=== PATIENT | female | born 1995 | race Caucasian/White ===

== ENCOUNTER 2017-01-10 20:24 | Inpatient (IN) | payer BC ==
[~2017-01-10] VITALS: Ht 167.6 cm; Wt 82.3 kg
[~2017-01-10 20:24] MED LIST: METO-157 PO
[2017-01-10 21:16] VITALS: Ht 167.6 cm; Wt 82.3 kg
[2017-01-10] MEDS ORDERED: NURSING VERBAL MED ORDER ONE (21:30)
[2017-01-10] MEDS ORDERED: ACETAMINOPHEN 325 MG TAB PO PRN (21:45)
[2017-01-10] MEDS ORDERED: PRENTAB26 PO (21:47)
[2017-01-10] MEDS ORDERED: MoRPHine SULFATE 10 MG/ML CARP/VIAL SC ONE (23:15)
[2017-01-11] MEDS ORDERED: LACTATED RINGER'S 1000ML 1,000 ML IV SCH ×2 (00:37→10:16)
[2017-01-11] MEDS ORDERED: LACTATED RINGER'S 1000ML 1,000 ML IV PRN (00:37)
[2017-01-11 00:54] LABS: URINE APPEARANCE CLEAR (CLEAR); URINE BILIRUBIN NEG (NEG); URINE COLOR DK YELLOW; URINE EPITHELIAL CELL AUTO >30 /lpf (0-5); URINE NITRITE NEG (NEG); URINE SPECIFIC GRAVITY 1.025 (1.000-1.030); UROBILINOGEN NEG (NEG)
[2017-01-11 00:57] LABS: HEMATOCRIT 31.5 % (37-47); MEAN CELL VOLUME 86.3 fL (80-100); MEAN CORPUSCULAR HEMOGLOBIN 30.4 pg (25-34); MEAN CORPUSCULAR HGB CONC 35.2 g/dl (32-36); MEAN PLATELET VOLUME 11.5 fL (7.4-10.4); PLATELET COUNT 187 K/uL (130-400); RED BLOOD COUNT 3.65 M/uL (4.2-5.4); WHITE BLOOD COUNT 12.84 K/uL (4.8-10.8)
[2017-01-11 00:58] LABS: MANUAL MICROSCOPIC REQUIRED? NO; REVIEW REQ? YES
[2017-01-11] MEDS ORDERED: PENICILLIN G POTASSIUM IV 6 MU in DEXTROSE 5% 250ML 250 ML IV ONE (01:15)
[2017-01-11] MEDS ORDERED: FENTANYL 2MCG/ML ROPIV 1.25MG/ML 100ML BAG EPI ONE (01:34)
[2017-01-11] MEDS ORDERED: BUPIVACAINE 0.25% 30 ML VIAL ONE (01:34)
[2017-01-11] MEDS ORDERED: EpHEDrine SULFATE INJ 50 MG/ML AMP ONE (01:34)
[2017-01-11] MEDS ORDERED: FENTANYL CITRATE INJ 50 MCG/1 ML 2 ML VIAL ONE (01:35)
[2017-01-11] MEDS: LACTATED RINGER'S 1000ML 1,000 ML IV SCH ×2 (01:39→08:56)
[2017-01-11] MEDS ORDERED: LACTATED RINGER'S 1000ML 500 ML IV PRN (02:39)
[2017-01-11] MEDS ORDERED: NALOXONE HCL INJ 1 MG in SODIUM CHLORIDE 0.9% 1000ML 1,000 ML IV PRN (02:39)
[2017-01-11] MEDS ORDERED: ONDANSETRON INJ 2 MG/ML 2 ML VIAL IV PRN (02:45)
[2017-01-11] MEDS ORDERED: NALBUPHINE HCL INJ 10 MG/ML AMP IV PRN (02:45)
[2017-01-11] MEDS ORDERED: DiphenhydrAMINE HCL 50 MG/ML VIAL IV PRN (02:45)
[2017-01-11] MEDS ORDERED: NALOXONE HCL INJ 0.4 MG/1 ML VIAL/CARP IV PRN (02:45)
[2017-01-11] MEDS ORDERED: EpHEDrine SULFATE INJ 50 MG/ML AMP IV PRN (02:45)
[2017-01-11] MEDS ORDERED: PROMETHAZINE HCL INJ 25 MG in SODIUM CHLORIDE 0.9% 50ML 50 ML IV PRN (02:45)
[2017-01-11] MEDS ORDERED: METOCLOPRAMIDE HCL INJ 20 MG in SODIUM CHLORIDE 0.9% 50ML 50 ML IV PRN (02:45)
[2017-01-11] MEDS: PENICILLIN G POTASSIUM IV 3 MU in DEXTROSE 5% 100ML 100 ML IV PRN ×2 (05:27→08:58)
[2017-01-11] MEDS: FENTANYL 2MCG/ML ROPIV 1.25MG/ML 100ML BAG EPI PRN ×2 (06:55→08:07)
[2017-01-11] MEDS ORDERED: OXYTOCIN 30 UNITS/500ML NSS IV ONE (07:19)
[2017-01-11] MEDS ORDERED: BENZOCAINE 20% AER SPR 82.5 GM CAN EXT PRN (10:30)
[2017-01-11] MEDS ORDERED: OXYCODONE/ACETAMINOPHEN 5-325 TAB PO PRN (10:30)
[2017-01-11] MEDS ORDERED: HYDROCORTISONE ACETATE 25 MG SUPP PR PRN (10:30)
[2017-01-11] MEDS ORDERED: OXYTOCIN 30 UNITS/500ML NSS IV PRN (10:30)
[2017-01-11] MEDS ORDERED: MEASLES, MUMPS & RUBELLA VIRUS VIAL SQ. ONE (10:30)
[2017-01-11] MEDS ORDERED: ACETAMINOPHEN 325 MG TAB PO PRN (10:30)
[2017-01-11] MEDS ORDERED: DIPHTHERIA/TETANUS/PERTUSSIS 0.5 ML SYR/VIAL IM. ONE (10:30)
[2017-01-11] MEDS ORDERED: SUPERCREAM 0.870 % 15GM JAR EXT PRN (10:30)
[2017-01-11] MEDS ORDERED: LANOLIN OINT EXT PRN ×2 (10:30)
--- NOTE | 2017-01-11 10:32 | Anesthesia Procedure Note ---
Anesthesia Epidural Removal Nt Date & Time Jan 11, 2017 at 10:32 Vital Signs Pain Intensity: 0.0 Notes Mental Status: alert / awake / arousable, participated in evaluation Nausea / Vomiting: adequately controlled Pain: adequately controlled Airway Patency, RR, SpO2: stable & adequate BP & HR: stable & adequate Hydration State: stable & adequate Neuraxial Anesthesia: was administered, sensory block is resolving Anesthetic Complications: no major complications apparent, pt satisfied with anesthetic care Epidural: removed without complications, with tip intact
--- NOTE | 2017-01-11 10:34 | DELIVERY SUMMARY ---
DATE OF OPERATION: 01/11/2017 DETAILS OF DELIVERY DATE OF DELIVERY: 01/11/2017. TIME OF DELIVERY OF BABY: 0956 a.m. TIME OF DELIVERY OF PLACENTA: 1010 a.m. DETAILS OF DELIVERY: The patient was found to be fully dilated and desired to push. She pushed for about 2 hours and there was a tight hymenal ring/ band around the head holding the baby's head from delivery. After verbal consent was obtained, 1% lidocaine was injected. A right mediolateral episiotomy was opened and the baby's head was delivered without difficulty. Shoulders were delivered with minimal traction. Baby was handed off to the mother where mouth and nose were suctioned. Cord was clamped x2 and cut. It was a 3-vessel cord. Cord blood was obtained. Perineum and vagina were checked for lacerations and there was only a right mediolateral episiotomy which was opened earlier. Rectal exam was done and confirmed to be second degree. Gloves were changed. The episiotomy was repaired with 2-0 Vicryl in a running locked fashion bringing the vaginal mucosa muscles together and the perineal body muscles together and then the skin in a subcuticular fashion. Excellent hemostasis was achieved. The placenta was found to be in the vagina, delivered spontaneously intact and complete. Uterus was explored and found to be empty. Fundus was firm and lower segment was cleared of all clots and debris. EBL was 200. No complications happened. Baby and mom tolerated the procedure well. Baby was a viable male infant, Apgars 8/9, weight is 3680 gr. At the end of the procedure sponge, needle and instrument counts were correct x2 and I was present during whole procedure. I attest to the content of the Intraoperative Record and any orders documented therein. Any exceptions are noted below. MTDD
[2017-01-11 14:00] VITALS: BP 110/72; PULSE 94; TEMP 36.8
[2017-01-11] MEDS: IBUPROFEN 600 MG TAB PO PRN (14:17)
[2017-01-11 15:50] VITALS: BP 133/68; PULSE 89; TEMP 36.9
[2017-01-11 19:55] VITALS: BP 121/75; PULSE 76; TEMP 36.4
[2017-01-11] MEDS: DOCUSATE SODIUM 100 MG CAP PO SCH (19:58)
[2017-01-12 00:30] VITALS: BP 115/71; PULSE 93; TEMP 36.4
[2017-01-12] MEDS: IBUPROFEN 600 MG TAB PO PRN ×2 (01:34→12:56)
[2017-01-12 04:00] VITALS: BP 120/70; PULSE 88; TEMP 36.7
[2017-01-12 06:33] LABS: HEMATOCRIT 23.5 % (37-47)
[2017-01-12] MEDS: DOCUSATE SODIUM 100 MG CAP PO SCH ×2 (08:27→19:57)
[2017-01-12] MEDS: FERROUS SULFATE 325 MG TAB PO SCH (08:27)
[2017-01-12] MEDS: PRENATAL VITAMIN TAB PO SCH (08:28)
[2017-01-12 08:30] VITALS: BP 132/88; PULSE 95; TEMP 36.6; O2SAT 98
--- NOTE | 2017-01-12 11:44 | OB/GYN Progress Note ---
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 Subjective conversation w/ patient, physical exam Ambulation: ambulating normally Voiding: no voiding problems Passing Gas: Yes Diet Tolerance: Regular Diet Lochia: Moderate Feeding Type: Bottle Feeding Pain: 3/10 Notes: Doing well, no concerns. Pain well controlled. Lochia moderate. Tolerating regular diet. Ambulating without difficulty. Objective Vital Signs Date Time Temp Pulse Resp B/P Pulse Ox O2 Delivery O2 Flow Rate FiO2 01/12/17 08:30 36.6 95 16 132/88 98 Room Air 01/12/17 08:30 Room Air 01/12/17 04:00 36.7 88 18 120/70 Room Air 01/12/17 00:30 36.4 93 18 115/71 Room Air 01/12/17 00:30 Room Air 01/11/17 19:55 36.4 76 18 121/75 Room Air 01/11/17 15:50 Room Air 01/11/17 15:50 36.9 89 18 133/68 Room Air 01/11/17 14:00 36.8 94 18 110/72 Room Air 01/11/17 14:00 Room Air Physical Exam General Appearance: WELL-APPEARING Respiratory/Chest: chest non-tender, lungs clear Cardiovascular: regular rate, rhythm Abdomen: normal bowel sounds, soft Fundus: Firm Extremities: normal range of motion, non-tender Laboratory Results Last 24 Hours Test 01/12/17 05:52 Hemoglobin 8.1 g/dL Hematocrit 23.5 % Assessment and Plan Post- Day Number: 1 Continue Routine Care: -Continue routine care -Anticipate d/c home in AM.
[2017-01-12 15:55] VITALS: BP 122/75; PULSE 79; TEMP 36.5; O2SAT 100
[2017-01-12] MEDS ORDERED: BISACODYL 5 MG TABEC PO SCH (20:00)
[2017-01-12 23:10] VITALS: BP 113/72; PULSE 86; TEMP 36.8
[2017-01-13] MEDS ORDERED: BISACODYL 10 MG SUPP PR PRN (07:00)
[2017-01-13] MEDS: DOCUSATE SODIUM 100 MG CAP PO SCH (07:52)
[2017-01-13] MEDS: FERROUS SULFATE 325 MG TAB PO SCH (07:52)
[2017-01-13] MEDS: PRENATAL VITAMIN TAB PO SCH (07:52)
[2017-01-13 07:55] VITALS: BP 118/79; PULSE 85; TEMP 36.8
[2017-01-13 08:22] LABS: HEMATOCRIT 27.9 % (37-47); MEAN CELL VOLUME 88.9 fL (80-100); MEAN CORPUSCULAR HEMOGLOBIN 30.9 pg (25-34); MEAN CORPUSCULAR HGB CONC 34.8 g/dl (32-36); PLATELET COUNT 213 K/uL (130-400); RED BLOOD COUNT 3.14 M/uL (4.2-5.4); WHITE BLOOD COUNT 9.53 K/uL (4.8-10.8)
--- NOTE | 2017-01-13 08:49 | OB/GYN Progress Note ---
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 Subjective conversation w/ patient, physical exam Ambulation: ambulating normally Voiding: no voiding problems Passing Gas: Yes Diet Tolerance: Regular Diet Lochia: Moderate Feeding Type: Breast Feeding Review of Systems Constitutional: No chills, No fatigue, No fever, No problem reported, No sweats , No weakness, No weight loss Respiratory: No cough, No dyspnea at rest, No dyspnea on exertion, No hemoptysis, No problem reported, No shortness of breath, No sputum, No wheezing Cardiac: No PND, No chest pain, No claudication, No edema, No orthopnea, No palpitations, No problem reported Breast: No breast lump, No breast pain, No change in shape, No nipple discharge , No problem reported, No see HPI Abdomen: No GI bleeding, No constipation, No diarrhea, No nausea, No pain, No problem reported, No vomiting Female : No abnormal vaginal bleeding, No dysuria, No hematuria, No incontinence, No problem reported, No see HPI, No urinary frequency, No vaginal discharge VD day #2 pt doing well disch home with insrructions Objective Vital Signs Date Time Temp Pulse Resp B/P Pulse Ox O2 Delivery O2 Flow Rate FiO2 01/13/17 07:55 Room Air 01/13/17 07:55 36.8 85 18 118/79 Room Air 01/12/17 23:10 36.8 86 20 113/72 Room Air 01/12/17 23:10 Room Air 01/12/17 15:55 36.5 79 16 122/75 100 Room Air Laboratory Results Last 24 Hours Test 01/13/17 07:17 White Blood Count 9.53 K/uL Red Blood Count 3.14 M/uL Hemoglobin 9.7 g/dL Hematocrit 27.9 % Mean Corpuscular Volume 88.9 fL Mean Corpuscular Hemoglobin 30.9 pg Mean Corpuscular Hemoglobin Concent 34.8 g/dl Platelet Count 213 K/uL Assessment and Plan Post- Day Number: 1
[2017-01-13] MEDS ORDERED: MTR600X PO (08:50)
--- NOTE | 2017-01-13 08:51 | Discharge Instructions ---
Discharge Instructions Admission Reason for Admission: Spontaneous Rupture Of Amniotic Membranes, Uterine Discharge Discharge Diagnosis / Problem: Discharge Goals Goal(s): Routine recovery after delivery Activity Recommendations Activity Limitations: as noted below ACTIVITY RECOMMENDATIONS: * Gradual return to full activity over the next 2-3 weeks. * No lifting - nothing heavier than baby over the next 2-3 weeks. * Do not engage in vigorous exercise, sexual activity or sports until cleared by your physician. * Do not drive or operate any motorized equipment until cleared by your physician. * You may shower/bathe daily. BREAST CARE: If you are not breast feeding: * Wear a supportive bra 24 hours a day for one to two weeks. * Avoid stimulating your breasts and nipples as much as possible during the first few weeks after delivery. * When taking a shower, have the warm water hit your back, not breasts. * When your breasts feel full, apply ice packs. Usually three to four times a day helps ease the discomfort. * Take a mild pain medication (Tylenol/Motrin) when you are uncomfortable. If breast feeding: * Use breast milk to lubricate nipples. Lansinoh cream may be used for sore nipples. You do not need to remove cream prior to breast feeding. If using a different brand of cream, check the label for directions regarding removal of cream prior to nursing. * Wear a supportive bra. * If having problems with breasts or breast feeding, call a surgical consultant or your health care provider. EPISIOTOMY CARE: After delivery, if you have an episiotomy (stitches), the following steps will ease discomfort and aid healing. * For the first 24 hours after delivery, place ice packs next to your episiotomy to help reduce swelling. * After the first 24 hour-period, sitz baths, either portable or in the tub, are suggested. A shower with a shower arm sprayed over the episiotomy may be comforting. * Felicita care should be done after each voiding and bowel movement. Squirt warm water from a plastic bottle over the perineum (region of the body between the anus and urinary opening) and pat dry. * Use Dermoplast to ease discomfort. Shake container. Empire directly over the episiotomy. * Place a Tucks on a clean sanitary pad next to your episiotomy. OVER THE COUNTER MEDICATION: * For discomfort or pain, you may use Acetaminophen (Tylenol), Ibuprofen (Advil ), or Naproxen (Aleve) following the package directions. * For constipation you may use Colace following the package directions. SPECIAL CARE INSTRUCTIONS: When you are discharged from the hospital, it is important for you to follow the instructions listed below: * During the first week at home, you should be able to care for yourself and your baby. In addition, the usual light household activities are encouraged. * Limit your activities to the way you feel. Do not try to clean the house or move furniture. Be sensible. * If you actively engage in sports and have done so up until the time of your delivery, you may resume these activities as soon as you feel able. This may take up to one month or even longer. Use good judgment. * Continue to take your vitamins for at least six weeks after the of your baby. * Your diet need not be limited unless you were on a special diet before your delivery. Breast-feeding mothers need around 2500 calories per day and at least 64-80 ounces of fluid per day (8 to 10 glasses). * You should eat foods from the four major food groups. Crash diets or fad diets are to be avoided. Eating lean meats, fresh fruits and vegetables, low-fat dairy products, high fiber foods and a regular exercise program, will help you get back to your pre- weight without putting your health at risk. * Constipation is sometimes a problem after delivery. Take a mild laxative as needed. If breast feeding, Milk of Magnesia is acceptable to use. You may use a suppository or Fleets enema if no episiotomy. * A daily shower or tub bath is suggested. Be sure to thoroughly and gently dry the perineum. * A bloody vaginal discharge will usually continue until around four weeks post . A small amount of bleeding may continue for as long as six weeks. Vaginal discharge changes from the bright red bleeding after delivery to pink then brownish and finally yellowish-pink before becoming white and disappearing. * Bleeding may increase with activity. Your first period may come in 4-8 weeks. If you are breast feeding, your period may be delayed even longer. * [place] (sex) can begin whenever both you and your partner feel comfortable and do not have any form of genital infection. It is recommended that you wait until after your return appointment and discuss with your physician. If you have questions, please talk to your health care practitioner. A condom should be used to prevent infection and . * Foreplay, gentle intercourse and lubrication is very important the first several times to prevent pain. A water-based lubricant such as K-Y jelly or Astroglide may be used. * Tampons may be used six weeks after delivery. * Douching should be avoided for 6 weeks after delivery. * If you have RH negative blood and your baby is RH positive, you will receive RHOGAM by injection prior to discharge. The nurse will give you a card to keep with you that has the date and place that you received RHOGAM after delivery. * During your care, you had a Rubella screen done to check for the presence of rubella antibodies in your blood. If your test was negative, you will receive a Rubella vaccine prior to discharge. This vaccine may cause a fever, soreness at the injection site and flu-like symptoms. If these symptoms persist, notify your health care practitioner. is not advised for three months after a Rubella vaccine. There is a higher chance of having a baby with defects if conceived within three months of getting the vaccine. * If you were discharged 24 hours from delivery or before 48 hours: Visiting nurses will come to your home 48 hours after discharge to assess you and your baby. The visiting nurse will meet with you while you are in the hospital to arrange a time and get directions to your home. * Verbalizes understanding of car seat law as reviewed with patient nursing. * Car Seat hand-out given and reviewed with patient by nursing. * Shaken baby information reviewed with patient by nursing. Call you doctor if: * Heavy bleeding (saturating several pads an hour) or passing clots the size of your fist. * A fever >101 degrees F (38.3 degrees C) on two occasions four hours apart and/or chills. * Unusual pain in the pelvic or vaginal areas. * "Baby Blues" lasting longer than two weeks. If you have any questions or concerns, call your health care practitioner at . FOLLOW-UP VISIT: * Please call the office at to schedule a 6 week examination. It is important you keep this appointment. * It is important for you to make arrangements for either yearly or twice yearly check-ups thereafter. . Current Hospital Diet Patient's current hospital diet: Regular OB Diet Discharge Diet Recommended Diet: Regular Diet Pending Studies Studies pending at discharge: no Medical Emergencies . Who to Call and When: Medical Emergencies: If at any time you feel your situation is an emergency, please call 911 immediately. . Non-Emergent Contact Non-Emergency issues call your: Specialist . . "Provider Documentation" section prepared by Roldan Cronin. VTE Core Measure Inpt VTE Proph given/why not?: Treatment not indicated
[2017-01-13 12:50] VITALS: BP_DIAS 79; PULSE 85; TEMP 36.8
== END 2017-01-13 12:50 | disposition home or self-care (01) | DRG 775 ==
LOC: C.OPB 20:24 → C.LD 20:25 → C.OPB 01-11 00:38 → C.OBG 01-11 14:00
PROVIDERS: ADMIT Obstetrics & Gynecology; ATTEND Obstetrics & Gynecology
PROC: 0W8NXZZ Division of Female Perineum, External Approach (ICD-10-PCS; principal; 2017-01-11)
PROC: 10E0XZZ Delivery of Products of Conception, External Approach (ICD-10-PCS; principal; 2017-01-11)
DX: O48.0 Post-term pregnancy (principal); O99.824 Streptococcus B carrier state complicating childbirth; Z37.0 Single live birth; Z3A.40 40 weeks gestation of pregnancy

== ENCOUNTER 2021-04-14 08:05 | Inpatient (IN) ==
[2021-04-14] MEDS ORDERED: OXYTOCIN 30 UNITS/500 ML BAG IV PRN ×3 (09:04→12:42)
[2021-04-14] MEDS ORDERED: PENICILLIN G POTASSIUM 6 MU in DEXTROSE 5% 250 ML IV STA (09:04)
[2021-04-14] MEDS ORDERED: PENICILLIN G POTASSIUM 3 MU in DEXTROSE 5% 100 ML IV PRN (09:04)
[2021-04-14] MEDS: LACTATED RINGER'S 1,000 ML IV PRN ×3 (09:30→10:32)
[2021-04-14 09:43] LABS: Hematocrit (blood only) 32.9 % (37-47); Mean Corpuscular Hemoglobin 29.6 pg (25-34); Mean Corpuscular Hgb Conc 33.4 g/dL (32-36); Mean Corpuscular Volume 88.7 fL (80-100); Mean Platelet Volume 11.1 fL (7.4-10.4); Platelet Count 221 K/uL (130-400); RDW Coefficient of Variation 14.3 % (11.5-14.5); RDW Standard Deviation 46.4 fL (36.4-46.3); Red Blood Count 3.71 M/uL (4.2-5.4); White Blood Count 10.21 K/uL (4.8-10.8)
[2021-04-14] MEDS ORDERED: SODIUM CHLORIDE 0.9% INJ 10 ML VIAL ONE (09:50)
[2021-04-14] MEDS ORDERED: ePHEDrine sulfate 50 MG/ML AMP ONE (09:50)
[2021-04-14] MEDS ORDERED: fentaNYL 2MCG/ML ROPIVACAINE 1.25MG/ML 100 ML BAG EPI ONE (09:51)
[2021-04-14] MEDS ORDERED: BUPIVACAINE 0.25% 30 ML VIAL ONE (09:51)
[2021-04-14] MEDS ORDERED: fentaNYL citrate 100 MCG/2 ML VIAL ONE (09:51)
[2021-04-14] MEDS ORDERED: NALOXONE HCL 1 MG in SODIUM CHLORIDE 0.9% 1000ML 1,000 ML IV PRN (10:14)
[2021-04-14] MEDS ORDERED: ePHEDrine sulfate 50 MG/ML AMP IV PRN (10:14)
[2021-04-14] MEDS ORDERED: fentaNYL 2MCG/ML ROPIVACAINE 1.25MG/ML 100 ML BAG EPI PRN (10:14)
[2021-04-14] MEDS ORDERED: diphenhydrAMINE 50 MG/ML VIAL IV PRN (10:14)
[2021-04-14] MEDS ORDERED: NALOXONE HCL 0.4 MG/1 ML VIAL/CARP IV PRN (10:14)
[2021-04-14] MEDS ORDERED: ONDANSETRON INJ 2 MG/ML 2 ML VIAL IV PRN (10:14)
--- NOTE | 2021-04-14 10:22 | Anesthesiology Consultation ---
Date of Service April 14, 2021 Assessment & Plan Chart Review Chart Review: Patient NOT seen in Pre Admission Testing and Acceptable Risk for Labor Epidural Consults Requested none ASA ASA2 Proposed Anesthesia Anesthesia Type: Labor Epidural and CSE Risk / Benefits Reviewed With: PT / POA / Parent / Guardian, Accepts Plan and Informed Consent Obtained History Height/Weight Height: 5 ft 6 in Weight: 86.183 kg Allergies Allergy/AdvReac Type Severity Reaction Status Date / Time No Known Allergies Allergy Verified 04/14/21 08:22 Medications Home Medications Medication Instructions Recorded Confirmed Last Taken Multivit/Min/Iron/Fol Ac/Pren 1 tab PO DAILY #0 tab 01/10/17 04/14/21 04/11/21 ( Vitamin) Active Medications Generic Name Dose Route Start Last Admin Trade Name Freq PRN Reason Stop Dose Admin Lactated Ringer's 1,000 mls @ 125 mls/hr 04/14/21 09:04 04/14/21 09:46 Lr IV 04/16/21 09:03 999 mls/hr .Q8H PRN Administration L&D Protocol Protocol NPO Date Last Intake of Fluids: 04/14/21 Time Last Intake of Fluids: 09:30 Date Last Intake of Solids: 04/14/21 Time Last Intake of Solids: 03:00 Past Medical History Medical History (Updated 04/14/21 @ 10:22 by Travis Butler MD) Flow murmur Does not see a physician any longer - Has been cleared. Idiopathic scoliosis (normal spontaneous vaginal delivery) 01/11/2017 Boy - Rafael SARS-CoV-2 positive 02/25/21 had loss of taste/smell but now resolved Vitamin D deficiency Exercise / Class Metabolic Activity II 4-5 Yardwork/Stairs/Walk up hill Past Family History Family History Grandfather (Maternal) Diabetes Grandmother (Maternal) Diabetes Past Surgical History Surgical History No history of previous surgery Past Anesthesia History No Hx of Anesthesia Complications and No Family Hx of Anesthesia Complications History of PONV No Hx of PONV and No Hx of Motion Sickness Social History Smoking Status: Never smoker Hx Alcohol Use: No Hx Substance Use: No Review of Systems no chest pain or sob Physical Exam Vital Signs Last Vital Signs Temp 36.6 C 04/14/21 08:25 Pulse 97 H 04/14/21 10:19 Resp 18 04/14/21 08:25 BP 119/76 04/14/21 08:17 Pulse Ox 100 04/14/21 10:19 ENMT Mouth: no TMJ abnormality Thyromental Distance: > or= 3.5 Finger Breadths Mallampati Class: II Neck normal visual inspection Respiratory normal respiratory effort Auscultation: lungs clear to auscultation bilaterally Cardiovascular Rate/Rhythm: regular rate and regular rhythm Musculoskeletal Spine: normal cervical ROM Neurologic moves all extremities Psychiatric Orientation: alert and oriented x 3 Testing Laboratory Results 04/14/21 09:25
--- NOTE | 2021-04-14 10:56 | Labor Progress Brief Note ---
Date of Service April 14, 2021 Subjective +Admit Note 25 F P1001 at 39.2 weeks admitted in labor with SROM this AM clear fluid. GBS is positive. FHT Cat 1. Covid positive in the in January. Will admit and start Oxytocin to augment contractions. Assessment & Plan Admission and Anticipated Discharge Date Admission Date: April 14, 2021 Physical Exam Constitutional: WD/WN, vitals as above well developed and comfortable Genitourinary: OB Exam Abdomen: + heart tones, + vertex, + estimated weight (8 lbs.) and + irregular contractions Manual OB Exam: + cervical dilation 5 cm, + cervical effacement 90%, + station -2 and + amniotic fluid clear OB Exam Monitor Tracing: + external FHT monitor used, + external uterine monitor used, + category I and + normal FHT variability anticipate normal delivery Results & Data ([facility]) Vital Signs (Past 12 Hours) Vital Signs Temp Pulse Resp BP Pulse Ox 04/14/21 10:50 93 H 103/56 L 04/14/21 10:49 92 H 98 04/14/21 10:48 81 107/51 L 04/14/21 10:46 80 98/55 L 04/14/21 10:44 74 98 04/14/21 10:43 78 111/56 L 04/14/21 10:42 83 110/59 L 04/14/21 10:39 76 119/58 L 98 04/14/21 10:37 76 126/66 04/14/21 10:34 105 H 96 04/14/21 10:29 105 H 98 04/14/21 10:24 94 H 98 04/14/21 10:19 97 H 100 04/14/21 08:25 36.6 C 18 04/14/21 08:17 96 H 119/76
--- NOTE | 2021-04-14 12:27 | Delivery Summary ---
Vaginal Delivery Summary Date of Service April 14, 2021 Supervising Physician Co-Signing Physician Notes Delivery Note live female JULIANA over intact perineum with delayed cord clamping and Apgars 7/9 weight pending. Cord blood obtained followed by spontaneous delivery of intact placenta. No tears. EBL 150 ml. Final sponge and instrument count are correct. Mom and baby stable.
[2021-04-14] MEDS ORDERED: ACETAMINOPHEN 325 MG TAB PO PRN (12:42)
[2021-04-14] MEDS ORDERED: BENZOCAINE 20% AER SPR 82.5 GM CAN EXT PRN (12:42)
[2021-04-14] MEDS ORDERED: DIPHTHERIA/TETANUS/PERTUSSIS 0.5 ML SYR/VIAL IM ONE (12:42)
[2021-04-14] MEDS ORDERED: SUPERCREAM 0.870% 15 GM JAR EXT PRN (12:42)
[2021-04-14] MEDS ORDERED: HYDROCORTISONE ACETATE 25 MG SUPP PR PRN (12:42)
[2021-04-14] MEDS ORDERED: bisacodyL 10 MG SUPP PR PRN (12:42)
--- NOTE | 2021-04-14 13:35 | Anesthesia Procedure Note ---
Date of Service April 14, 2021 Anesthesia Post Epidural Note Vital Signs Vital Signs: Temp Pulse Resp BP Pulse Ox 36.5 C 86 18 123/63 97 04/14/21 11:04 04/14/21 13:29 04/14/21 12:29 04/14/21 13:29 04/14/21 12:15 Pain Intensity Bilateral Abdomen: Pain Intensity: 0 Notes Mental Status: alert / awake / arousable and participated in evaluation Nausea / Vomiting: adequately controlled Pain: adequately controlled Airway Patency, RR, SpO2: stable & adequate BP & HR: stable & adequate Hydration State: stable & adequate Neuraxial Anesthesia: was administered and sensory block is resolving Anesthetic Complications: no major complications apparent and Pt Satisfied with anesthetic care Epidural: Removed without complications and With tip intact
[2021-04-14] MEDS: IBUPROFEN 600 MG TAB PO PRN ×2 (15:36→21:25)
[2021-04-14] MEDS: DOCUSATE SODIUM 100 MG CAP PO SCH (20:38)
[2021-04-15 06:41] LABS: Hemoglobin 10.2 g/dL (12.0-16.0); Mean Corpuscular Hemoglobin 29.7 pg (25-34); Mean Corpuscular Volume 87.2 fL (80-100); Mean Platelet Volume 10.8 fL (7.4-10.4); Platelet Count 184 K/uL (130-400); RDW Coefficient of Variation 14.3 % (11.5-14.5); RDW Standard Deviation 45.2 fL (36.4-46.3); Red Blood Count 3.44 M/uL (4.2-5.4); White Blood Count 10.45 K/uL (4.8-10.8)
[2021-04-15] MEDS: DOCUSATE SODIUM 100 MG CAP PO SCH ×2 (08:10→20:38)
[2021-04-15] MEDS: PRENATAL VITAMIN 1 TAB PO SCH (08:10)
[2021-04-15] MEDS: IBUPROFEN 600 MG TAB PO PRN ×2 (08:10→15:44)
--- NOTE | 2021-04-15 08:22 | Obstetrical Progress Note ---
Date of Service April 15, 2021 Assessment & Plan Admission and Anticipated Discharge Date Admission Date: April 14, 2021 Subjective Patient is seen and examined. She feels well, no complaints. Desires d/c home. Ambulating without dizziness Voiding without difficulty Tolerating regular diet with out N&V Bleeding is minimal No fever/ chills/ CP/ SOB/ N&V/ Leg pain Breast feeding without problems Vital Signs Temp Pulse Resp BP Pulse Ox 04/15/21 03:00 36.5 C 77 16 116/73 96 04/15/21 00:55 36.5 C 86 16 105/71 98 Lab Results 04/14/21 04/15/21 Range/Units 09:25 06:33 WBC 10.21 10.45 (4.8-10.8) K/uL RBC 3.71 L 3.44 L (4.2-5.4) M/uL Hgb 11.0 L 10.2 L (12.0-16.0) g/dL Hct 32.9 L 30.0 L (37-47) % MCV 88.7 87.2 (80-100) fL MCH 29.6 29.7 (25-34) pg MCHC 33.4 34.0 (32-36) g/dL RDW Std Deviation 46.4 H 45.2 (36.4-46.3) fL RDW Coeff of Eusebia 14.3 14.3 (11.5-14.5) % Plt Count 221 184 (130-400) K/uL MPV 11.1 H 10.8 H (7.4-10.4) fL PE: General: Alert, orientedx3, NAD Abd: soft, NT, fundus firm, below Umbilicus Perineum intact, Lochia rubra minimal Ext; NT, no edema AP: 25 yo s/p , ppd# 1 VSS Afebrile doing well Continue routine care All questions were answered Discussed when to call D/C home this afternoon Results & Data ([facility]) Vital Signs (Past 12 Hours) Vital Signs Temp Pulse Resp BP Pulse Ox 04/15/21 03:00 36.5 C 77 16 116/73 96 04/15/21 00:55 36.5 C 86 16 105/71 98
[2021-04-15] MEDS ORDERED: NON-FORMULARY MEDICATION (Multivit/Min/Iron/Fol Ac/Pren (Prenatal Vitamin) tablet) PO SCH (09:00)
[2021-04-15] MEDS ORDERED: bisacodyL 5 MG TABEC PO SCH (20:00)
[2021-04-16] MEDS: IBUPROFEN 600 MG TAB PO PRN (04:32)
[2021-04-16] MEDS: bisacodyL 5 MG TABEC PO ONE ×2 (04:35→04:39)
[2021-04-16 06:13] LABS: Hematocrit (blood only) 30.3 % (37-47); Hemoglobin 10.3 g/dL (12.0-16.0)
--- NOTE | 2021-04-16 07:50 | Obstetrical Progress Note ---
Date of Service April 16, 2021 Subjective Ambulation: ambulating normally Diet Tolerance:: regular diet Lochia:: Small Feeding Type:: bottle feeding Physical Exam Constitutional WD/WN, vitals as above well developed and comfortable Genitourinary Uterus firm non-tender no edema neg Nitish's for d/c home Results & Data ([facility]) Vital Signs (Past 12 Hours) Vital Signs Temp Pulse Resp BP Pulse Ox 04/15/21 23:25 36.6 C 93 H 18 109/68 97 04/15/21 20:30 36.6 C 81 18 119/74 98 Diagnostic Findings Laboratory Results - last 72 hr 04/14/21 04/15/21 04/16/21 09:25 06:33 05:58 WBC 10.21 10.45 RBC 3.71 L 3.44 L Hgb 11.0 L 10.2 L 10.3 L Hct 32.9 L 30.0 L 30.3 L MCV 88.7 87.2 MCH 29.6 29.7 MCHC 33.4 34.0 RDW Std Deviation 46.4 H 45.2 RDW Coeff of Eusebia 14.3 14.3 Plt Count 221 184 MPV 11.1 H 10.8 H
[2021-04-16] MEDS: DOCUSATE SODIUM 100 MG CAP PO SCH (08:15)
[2021-04-16] MEDS: PRENATAL VITAMIN 1 TAB PO SCH (08:15)
== END 2021-04-16 10:40 | disposition home or self-care (01) | DRG 807 ==
LOC: OPB 08:05 → 4S1 08:08 → 4S2 14:50